=== PATIENT | male | born 2005 | race Caucasian/White ===

== ENCOUNTER 2024-10-14 19:16 | Emergency (ER) | payer OTHER, SELFPAY ==
[2024-10-14 19:19] VITALS: BP 123/80; BMI 14.3
[2024-10-14 19:23] VITALS: BP 123/80
[2024-10-14] MEDS: SUBUTEX 8 MG SL (20:15)
[2024-10-14 20:16] LABS: % Basophils 0.5 % (0-2); % Eosinophils 0.2 % (0-6); % Immature Granulocytes 0.5 % (0-0.5); % Lymphocytes 13.7 % (20.5-51.1); % Monocytes 4.3 % (1.7-9.3); % Neutrophils 80.8 % (42.2-75.2); Absolute Basophils 0.1 10^3/uL (0-0.2); Absolute Immature Granulocytes 0.1 10^3/uL (0-0.05); Absolute Lymphocytes 2.1 10^3/uL (1.2-3.4); Absolute Monocytes 0.7 10^3/uL (0.1-0.6); Absolute Neutrophils 12.5 10^3/uL (1.4-6.5); Hematocrit 45.7 % (39.0-52.0); Hemoglobin 14.3 g/dL (13.0-18.0); Mean Corp Hgb Conc. 31.3 g/dL (33.0-37.0); Mean Corpuscular Hgb 26.9 pg (27.0-31.0); Mean Corpuscular Volume 85.9 fL (80.0-94.0); Mean Platelet Volume 9.4 fL (7.4-10.4); Nucleated Red Blood Cells % 0 % (-); Platelet Count 493 10^3/uL (130-400); Red Blood Cell Count 5.32 10^6/uL (4.70-6.10); Red Cell Dist. Width 13.5 % (11.5-14.5); White Blood Cell Count 15.4 10^3/uL (4.8-10.8)
[2024-10-14] MEDS: ZOFRAN 4 MG IV (20:16)
[2024-10-14] MEDS: NSS 1000 IV (20:16)
[2024-10-14 20:21] VITALS: BP 125/73
[2024-10-14 20:34] LABS: ALT (SGPT) 12 U/L (0-50); AST (SGOT) 21 U/L (17-59); Albumin 4.4 g/dl (3.5-5.0); Alkaline Phosphatase 71 U/L (38-126); Blood Urea Nitrogen 4 mg/dl (9-20); Calcium 9.5 mg/dl (8.4-10.2); Carbon Dioxide 28 mmol/L (22-30); Chloride 100 mmol/L (98-107); Estimated Creatinine Clearance > 125 ml/min; Glucose 92 mg/dl (70-99); Sodium 141 mmol/L (135-145); Total Bilirubin 0.6 mg/dl (0.2-1.3); Total Protein 7.7 g/dl (6.3-8.2); eGFR > 60.00
[2024-10-14 20:39] LABS: Potassium 3.8 mmol/L (3.5-5.1)
[2024-10-14 20:45] LABS: Troponin I < 0.012 ng/ml
[2024-10-14 21:00] VITALS: BP 121/87
--- NOTE | 2024-10-14 21:17 | ED.GENMED ---
History of Present Illness
General
Chief Complaint: Substance Abuse
Source: patient
Exam Limitations: none
Time Seen by Provider: 10/14/24 19:32
Nursing documentation reviewed up to this point in time: agreed with
History of Present Illness
History of Present Illness:
19-year-old male presenting from senior care history of polysubstance abuse arrested roughly 18 hours ago presenting to the emergency department today with concerns of potential polysubstance withdrawal syndrome. He claims his main uses track and
fentanyl. He does occasionally also use Xanax marijuana. He has been using for roughly 3 years. Main symptoms at this point are nausea feeling lightheaded and bodyaches. Denies any chest pain or shortness of breath. Denies any history of
withdrawal seizures or known medical conditions
Review of Systems
Review of Systems
Allergies reviewed?: Yes
All Other Systems: ROS reviewed and negative except as documented in HPI and ROS
Phy Exam
Physical Exam
Physical Exam:
GENERAL: Alert , in no apparent distress
EYE: pupils equal and reactive
NECK: Supple, no significant adenopathy.
ENT: o/p clr, mmm.
CARDIAC: Regular rate and rhythm .
LUNGS: Clear breath sounds bilaterally, no acute respiratory distress, no wheezes/rales/rhonchi
ABDOMEN: Soft, without focal tenderness, no r/g, no cvat
NEUROLOGICAL: Alert and oriented, no focal neuro deficits
SKIN: Warm and dry, skin intact.
MUSCULOSKELETAL: No edema, well perfused.
PSYCH: Normal and appropriate interaction.
Course
Orders/Labs/Results
Orders:
Orders
10/14/24 19:31
EKG [Electrocardiogram (*1)] Urgent
Reason for Study: Tachycardia
EKG- Treatment ONCE
10/14/24 20:01
Buprenorphine [Subutex] 8 mg SL NOW ONE
10/14/24 20:04
0.9% Sodium Chloride 1000 ml [Nss] 1,000 ml IV BOLUS
Ondansetron Injectable [Zofran] 4 mg IV NOW STA
10/14/24 20:11
Complete Blood Count/With Diff Urgent
Comprehensive Metabolic Panel Urgent
Troponin I Urgent
Abnormal Lab Results
10/14/24
20:11
WBC 15.4 H 10^3/uL
(4.8-10.8)
MCH 26.9 L pg
(27.0-31.0)
MCHC 31.3 L g/dL
(33.0-37.0)
Plt Count 493 H 10^3/uL
(130-400)
Abs Immat Gran (auto) 0.1 H 10^3/uL
(0-0.05)
Absolute Neuts (auto) 12.5 H 10^3/uL
(1.4-6.5)
Absolute Monos (auto) 0.7 H 10^3/uL
(0.1-0.6)
Neutrophils % 80.8 H %
(42.2-75.2)
Lymphocytes % 13.7 L %
(20.5-51.1)
BUN 4 L mg/dl
(9-20)
Creatinine 0.6 L mg/dL
(0.7-1.3)
10/14/24 20:11
10/14/24 20:11
Vital Signs
Initial and Last Documented VS:
Initial Vital Signs
Temp Pulse Resp BP Pulse Ox
98.1 F 68 22 123/80 100
10/14/24 19:19 10/14/24 19:19 10/14/24 19:19 10/14/24 19:19 10/14/24 19:19
Last Documented Vital Signs
Temp Pulse Resp BP Pulse Ox
98.1 F 65 23 123/80 99
10/14/24 19:19 10/14/24 19:45 10/14/24 19:45 10/14/24 19:23 10/14/24 19:45
MDM/Problems Addressed
MDM/Problems Addressed:
19-year-old male presenting from the senior care with concerns of substance withdrawal. Here vital signs are normal patient no obvious distress able to converse and speak he does claim to have some nausea and additional symptoms otherwise. Labs were
obtained showing slight white count but otherwise no emergent findings. EKG with normal QTc. Patient was given given a dose of Suboxone with improving symptoms. No signs of any life-threatening result of withdrawal at this point plan to observe
in the senior care. Return precautions given.
*Critical Care Note
Total Time (30-74mins, 75-104mins- exclusive of procedures): Not Applicable
ED Attending Note
-
Portions of this chart may have been created with voice recognition software.� Occasional wrong word or��sound alike� substitutions may have occurred due to the inherent limitations of voice recognition software.
Discharge Plan
Departure
Patient Disposition: [facility]dc
Date of Disposition: 10/14/24
Time of Disposition: 21:18
Patient with high blood pressure during this ER visit?: No
Condition: Good
Covid-19: Not Applicable
Discharge Problem:
Polysubstance abuse, Withdrawal complaint
Instructions: Drug Misuse and Addiction (DC), Polysubstance Use Disorder (DC)
Referrals:
[facility],Facility [Family Provider] -
Activity Restrictions/Additional Instructions:
You came to the emergency department today with concerns of symptoms potentially consistent with substance withdrawal. Concerning all multiple substances you may have competing withdrawal syndromes. You are given a dose of Suboxone here with some
improvement of symptoms. You likely need to be on Suboxone moving forward. He also need ongoing monitoring and reassessment for other polysubstance withdrawal syndromes. Return for any worsening, new or concerning symptoms.
Interventions
Interventions:
*Risk Screen - Suicide Last Done: 10/14/24 19:19
*General Assessment Last Done: 10/14/24 19:19
*Neglect/Abuse Screening Last Done: 10/14/24 19:19
ED- Fall Risk Assessment Last Done: 10/14/24 19:19
*ED COVID-19 Vaccine History Last Done: 10/14/24 19:19
ED-Psychological Assessment Last Done: 10/14/24 19:27
Discharge Date and Time
Print Language: WOLOF
[2024-10-14 22:00] VITALS: BP 125/85
== END 2024-10-14 22:08 ==
LOC: EMR 19:16
PROVIDERS: EMERGENCY PHYSICIAN Emergency Medicine
DX: F19.130 Other psychoactive substance abuse with withdrawal, uncomplicated (principal)
CPT/HCPCS: 99284; 96374; 96361; 80053; 84484; 85025; 93005